=== PATIENT | female | born 1985 | race Caucasian/White ===

== ENCOUNTER 2017-11-19 13:29 | Emergency (ER) | payer MEDICAID ==
[~2017-11-19] VITALS: Ht 162.6 cm; Wt 70.0 kg
[2017-11-19] MEDS ORDERED: ONDANSETRON HCL 4MG/2ML INJ IV STA (14:07)
[2017-11-19] MEDS ORDERED: SODIUM CHLORIDE 0.9% 1,000 ML IV ONE (14:07)
[2017-11-19] MEDS ORDERED: MECLIZINE 25MG TABLET PO ONE (14:15)
[2017-11-19 14:25] LABS: BASOPHILS % 0.4 % (0.0-2.0); EOSINOPHILS % 2.3 % (0.0-5.0); HEMATOCRIT. 42.3 % (36.0-48.0); HEMOGLOBIN. 14.1 g/dL (12.0-16.0); LYMPHOCYTES % 24.3 % (20.0-50.0); MEAN CORPUSCULAR HEMOGLOBIN 29.8 pg (28.0-32.0); MEAN CORPUSCULAR VOLUME 89.5 fL (81.0-99.0); MEAN PLATELET VOLUME 9.7 fl (7.4-10.4); MONOCYTES % 4.6 % (2.0-8.0); NEUTROPHILS % 68.4 % (40.0-76.0); PLATELET 303 x1000/uL (130-400); RED BLOOD CELL COUNT 4.72 mill/uL (4.2-5.4); RED CELL DISTRIBUTION WIDTH 14.1 % (11.6-14.6)
[2017-11-19 14:28] LABS: CHLORIDE 105 mEq/L (98-107)
[2017-11-19 16:45] VITALS: BP 119/60
== END 2017-11-19 17:21 | disposition home or self-care (01) ==
LOC: ER 14:11
DX: R42 Dizziness and giddiness (principal); R11.2 Nausea with vomiting, unspecified; E78.00 Pure hypercholesterolemia, unspecified
CPT/HCPCS: 36415; 80053; 81025; 85025; 96361; 96374; 99284; J2405; J7030; Z7610; J8597